=== PATIENT | male | born 1955 | race Caucasian/White ===

== ENCOUNTER → 2017-05-12 | Outpatient (CLI) | payer OTHER ==
[~2017-05-12] MED LIST: ACET-1600 PO; ASCO500T8 PO; ASPI-496 PO; ASPI-621 PO; ASPI325T17 PO; CHOL5000 PO; DIAZ5TAB PO; IBUP-1484 PO; MELO15TA24 PO; MELO7.5T5 PO; MULT1TAB60 PO; ONDA4TAB7 PO; OXYC-302 PO; PITA2TAB2 PO; TRAM100T2 PO; UBID100C19 PO; UBID100C24 PO
[2017-05-12 09:56] LABS: HEMATOCRIT 43.1 % (39.2-51.8); HEMOGLOBIN 14.5 g/dL (13.7-18.0); WHITE BLOOD COUNT 6.7 x10^3/uL (3.4-10)
[2017-05-12 10:07] LABS: BLOOD UREA NITROGEN 18 mg/dL (7-18)
[2017-05-12 11:03] LABS: HIV 1&2 ANTIBODY SCREEN Nonreactive (Nonreactive); HIV-1 p24 ANTIGEN Nonreactive (Nonreactive)
== END | disposition home or self-care (01) ==
LOC: STAR 08:33
PROVIDERS: ATTEND Orthopaedic Surgery
DX: Z01.818 Encounter for other preprocedural examination (principal); M17.11 Unilateral primary osteoarthritis, right knee
CPT/HCPCS: 36415; 80048; 83036; 85025; 85610; 85730; 86703; 87081; 87147; 87899; 93005; G0435

== ENCOUNTER 2017-05-19 07:31 | Inpatient (IN) | payer OTHER ==
[~2017-05-19] VITALS: Ht 177.8 cm; Wt 88.6 kg
[~2017-05-19 07:31] MED LIST changes: +EPINEPHRINE 1 MG/ML, 1ML ONE; +KETOROLAC 60 MG/2 ML ONE; +SODIUM CHLORIDE 0.9% 100 ML ONE; +TRANEXAMIC ACID 100 MG/ML, 10ML ONE
[2017-05-19] MEDS ORDERED: VANCOMYCIN PER PHARMACY MC STA (07:48)
[2017-05-19] MEDS ORDERED: LACTATED RINGERS 1,000 ML IV SCH (07:50)
[2017-05-19] MEDS ORDERED: OxyconTIN ER 10 MG TAB.ER ONE (07:55)
[2017-05-19] MEDS ORDERED: ACETAMINOPHEN 500 MG TABLET ONE (07:55)
[2017-05-19] MEDS ORDERED: GABAPENTIN 300 MG CAPSULE ONE (07:55)
[2017-05-19] MEDS ORDERED: VANCOMYCIN 1,300 MG in SODIUM CHLORIDE 0.9% 250 ML IV ONE (08:00)
[2017-05-19] MEDS ORDERED: GABAPENTIN 300 MG CAPSULE PO ONE (08:00)
[2017-05-19] MEDS ORDERED: OxyconTIN ER 10 MG TAB.ER PO ONE (08:00)
[2017-05-19] MEDS ORDERED: ACETAMINOPHEN 500 MG TABLET PO ONE (08:00)
[2017-05-19 08:21] VITALS: BP 132/86
[2017-05-19] MEDS ORDERED: FENTANYL PF 100 MCG/2ML ONE ×2 (08:38→09:56)
[2017-05-19] MEDS ORDERED: MIDAZOLAM 1 MG/ML, 2ML ONE (08:38)
[2017-05-19] MEDS ORDERED: ONDANSETRON 2MG/ML, 2ML IVPush PRN (10:30)
[2017-05-19] MEDS ORDERED: EPHEDRINE 50 MG/ML, 1ML IVPush PRN (10:30)
[2017-05-19] MEDS ORDERED: MIDAZOLAM 1 MG/ML, 2ML IV PRN (10:30)
[2017-05-19] MEDS ORDERED: LABETALOL 5MG/ML, 20ML IV PRN (10:30)
[2017-05-19] MEDS ORDERED: OXYcodone 5 MG/5 ML ORAL.SOL UDC PO PRN (10:30)
[2017-05-19] MEDS ORDERED: HYDROcodone/APAP 7.5-325MG/15ML UDC PO PRN (10:30)
[2017-05-19] MEDS ORDERED: PROMETHAZINE 25 MG/ML, 1ML IV PRN (10:30)
[2017-05-19] MEDS ORDERED: MEPERIDINE/PF 25MG/0.5ML IVPush PRN (10:30)
[2017-05-19] MEDS ORDERED: DIAZEPAM 5 MG/ML, 2ML IVPush PRN (10:30)
[2017-05-19] MEDS ORDERED: ALBUTEROL SULFATE 2.5 MG/3 ML NPPB PRN (10:30)
[2017-05-19] MEDS ORDERED: hydrALAzine 20 MG/ML, 1ML IV PRN (10:30)
[2017-05-19] MEDS ORDERED: METOPROLOL 1 MG/ML, 5ML IV PRN (10:30)
[2017-05-19] MEDS ORDERED: CEFAZOLIN 1,000 MG ONE (10:31)
[2017-05-19] MEDS ORDERED: ONDANSETRON 2MG/ML, 2ML ONE (10:31)
[2017-05-19] MEDS ORDERED: DEXAMETHASONE 4 MG/ML, 1ML ONE (10:31)
[2017-05-19] MEDS ORDERED: PROPOFOL 10 MG/ML, 20ML ONE (10:31)
[2017-05-19] MEDS ORDERED: HYDROmorphone 1 MG/ML, 1ML IV PRN (11:00)
[2017-05-19] MEDS ORDERED: DIPHENHYDRAMINE 25 MG CAPSULE PO PRN (11:00)
[2017-05-19] MEDS ORDERED: ONDANSETRON 2MG/ML, 2ML IV PRN (11:00)
[2017-05-19] MEDS ORDERED: ALUMINUM/MAG/SIMETHICONE 30 ML UDC PO PRN (11:00)
[2017-05-19] MEDS ORDERED: ACETAMINOPHEN 650 MG/20.3 ML UDC PO PRN (11:00)
[2017-05-19] MEDS ORDERED: ONDANSETRON 4 MG TABLET PO PRN (11:00)
[2017-05-19] MEDS ORDERED: SENNA/DOCUSATE TABLET PO PRN (11:00)
[2017-05-19] MEDS ORDERED: MAGNESIUM HYDROXIDE 8%, 30ML UDC PO PRN (11:00)
[2017-05-19] MEDS ORDERED: TRANEXAMIC ACID 1,000 MG in SODIUM CHLORIDE 0.9% 100 ML IVPB ONE (11:00)
[2017-05-19] MEDS: FENTANYL PF 100 MCG/2ML IV PRN ×2 (11:06→11:14)
[2017-05-19] MEDS ORDERED: HYDROmorphone 2 MG/ML, 1ML ONE (11:21)
[2017-05-19] MEDS: HYDROmorphone 1 MG/ML, 1ML IV PRN ×2 (11:24→11:39)
[2017-05-19] MEDS ORDERED: OXYcodone 5 MG/5 ML ORAL.SOL UDC ONE (11:44)
[2017-05-19 12:55] VITALS: BP 120/66
[2017-05-19] MEDS: D5%-0.45NACL+KCL 20MEQ 1,000 ML IV SCH ×2 (13:28→22:38)
[2017-05-19 14:13] VITALS: BP 102/57
[2017-05-19] MEDS: OXYcodone IR 5MG TABLET PO PRN ×3 (14:28→23:49)
[2017-05-19] MEDS: DIAZEPAM 5 MG TABLET PO PRN (15:43)
[2017-05-19] MEDS: CEFAZOLIN PMX 1GM/50ML 50 ML IVPB SCH (17:24)
[2017-05-19 19:10] VITALS: BP 112/62
[2017-05-19] MEDS: DOCUSATE 100 MG CAPSULE PO SCH (21:46)
[2017-05-19 23:51] VITALS: BP 107/63
[2017-05-20] MEDS: CEFAZOLIN PMX 1GM/50ML 50 ML IVPB SCH (01:12)
[2017-05-20 03:45] VITALS: BP 95/50
[2017-05-20] MEDS: OXYcodone IR 5MG TABLET PO PRN ×2 (04:29→08:43)
[2017-05-20 05:52] LABS: HEMATOCRIT 31.1 % (39.2-51.8); HEMOGLOBIN 10.5 g/dL (13.7-18.0)
[2017-05-20] MEDS ORDERED: ASPIRIN 81 MG TABLET EC PO SCH (06:00)
[2017-05-20] MEDS ORDERED: DEXAMETHASONE 4 MG/ML, 1ML IVPush SCH (06:00)
[2017-05-20] MEDS ORDERED: OXYC5TAB2 PO (06:42)
[2017-05-20] MEDS ORDERED: DOCU-131 PO (06:44)
[2017-05-20 07:07] VITALS: BP 113/66
[2017-05-20] MEDS: D5%-0.45NACL+KCL 20MEQ 1,000 ML IV SCH (07:42)
[2017-05-20] MEDS ORDERED: ASPI-621 PO (08:45)
[2017-05-20] MEDS ORDERED: ONDA4TAB10 PO (08:47)
[2017-05-20] MEDS: DOCUSATE 100 MG CAPSULE PO SCH (08:48)
[2017-05-20] MEDS ORDERED: DIAZ5TAB PO (08:53)
[2017-05-20] MEDS ORDERED: TRAM50TA2 PO (08:57)
[2017-05-20] MEDS ORDERED: TAMSULOSIN 0.4 MG CAP.ER.24H PO SCH (09:00)
[2017-05-20] MEDS ORDERED: OXYC5CAP2 PO (09:10)
[2017-05-20] MEDS ORDERED: MELO7.5T31 PO (09:15)
[2017-05-20] MEDS ORDERED: KETOROLAC 30 MG/1 ML IV SCH (11:00)
[2017-05-20 11:40] VITALS: BP 133/63
[2017-05-20] MEDS: DIAZEPAM 5 MG TABLET PO PRN (11:46)
== END 2017-05-20 12:28 | disposition home or self-care (01) | DRG 470 ==
LOC: ORIP 07:31 → 4NOR 12:24 → DCLOUNGE 05-20 12:05
PROVIDERS: ADMIT Orthopaedic Surgery; ATTEND Orthopaedic Surgery
PROC: 0SRC0J9 Replacement of Right Knee Joint with Synthetic Substitute, Cemented, Open Approach (ICD-10-PCS; principal; 2017-05-19 09:30)
DX: M17.11 Unilateral primary osteoarthritis, right knee (principal)
CPT/HCPCS: 36415; 85014; 85018; C1713; J0171; J0690; J1100; J1170; J1885; J2250; J2405; J2704; J2795; J3010; J3370; C1776; J3480; J7050; J7120